=== PATIENT | female | born 1965 | race Caucasian/White ===

== ENCOUNTER 2022-03-04 08:14 | Emergency (ER) | payer MEDICAID ==
[~2022-03-04] VITALS: Ht 165.1 cm; Wt 60.0 kg
[2022-03-04 08:35] VITALS: BP 148/95
== END 2022-03-04 17:12 | disposition home or self-care (01) ==
LOC: ER 08:14
DX: B37.9 Candidiasis, unspecified (principal); I10 Essential (primary) hypertension
CPT/HCPCS: 99281